=== PATIENT | male | born 1960 | race Caucasian/White ===

== ENCOUNTER 2025-08-07 10:42 | Emergency (ER) | payer MEDICARE, MEDICAID ==
[~2025-08-07] VITALS: Ht 165.1 cm; Wt 63.2 kg
[2025-08-07 12:48] VITALS: BP 132/70; PULSE 83; RESP 15; TEMP 99.4; O2SAT 97
[2025-08-07] MEDS ORDERED: AMLO1CAP77 PO ×2 (13:41→13:51)
[2025-08-07] MEDS ORDERED: ATOR20TA PO ×2 (13:43→13:51)
[2025-08-07] MEDS ORDERED: RIVA10TA PO ×2 (13:45→13:51)
--- NOTE | 2025-08-07 13:53 | Physician Documentation ---
HPI ~ General Chief Complaint: Medication Request Stated Complaint: MED CLEARANCE Time Seen by MD: 12:28 History of Present Illness HPI Comments 65-year-old male who is new to the area in his requesting medication refill for hypertension and his other prescriptions. Denies any medical complaints Without Medications Since: Aug 07, 2025 Medication Reconciliation Allergies: Coded Allergies: No Known Allergies (Unverified , 08/07/25) Scheduled Amlodipine Besylate/Benazepril 2.5/10 MG* (Amlodipine-Benazepril 2.5/10 MG*), 2 CAP PO BID Atorvastatin Calcium* (Lipitor*), 1 TAB PO DAILY Rivaroxaban (Xarelto), 1 TAB PO DAILY Review of Systems All Other Systems at this time: Reviewed and Negative ROS As stated above in the HPI, otherwise all systems are reviewed and negative. Physical Exam Physical Exam Vital Signs: Temperature: 99.4, Source: Temporal, Heart Rate: 83, Respiratory Rate: 15, BP: 132/70, Pulse Oximetry: 97, Weight: 63.200 Oxygen Flow Rate: 0 Physical Exam General: Alert, no apparent distress. HEENT: PERRL, EOMI, no injection, moist mucous membranes. Neck: Full range of motion. Respiratory: Lungs clear, no respiratory distress. Chest: No accessory muscle use. Cardiovascular: Regular rate and rhythm, no murmurs. Gastrointestinal: Soft, nontender, nondistended. Bowels sounds present. Extremities: Normal range of motion, no deformity. Neurologic: Oriented x4. Psychiatric: Normal mood and affect. Skin: Normal color, warm and dry. No edema, no ecchymosis. Progress Results/Orders Results/Orders Vital Signs 08/07/25 08/07/25 10:50 12:48 Temp 99.4 99.4 Pulse 87 83 Resp 18 15 B/P (MAP) 123/68 132/70 (90) Pulse Ox 94 97 O2 Flow Rate 0 0 Medical Decision Making Additional information obtaine: old records Findings Medications refilled as requested Differential Dx:Considerations: Include: Adverse circumstances, Economic, Psychosocial, Medical services unavail., Medication refill, Medication non- compliance, Other Departure Disposition: HOME / SELF CARE / HOMELESS Impression: Primary Impression: General medical exam Discharge Instructions: Medicine Refill at the Emergency Department Referrals: NO PRIMARY CARE PROVIDER (PCP) Prescriptions Rivaroxaban (Xarelto) 10 Mg Tablet 1 TAB PO DAILY for 7 Days, #7 TAB 0 Refills Prov: EDGAR VILLANUEVA NP 08/07/25 Atorvastatin Calcium* (Lipitor*) 20 Mg Tablet 1 TAB PO DAILY for 30 Days, #30 TAB Prov: EDGAR VILLANUEVA NP 08/07/25 Amlodipine Besylate/Benazepril 2.5/10 MG* (Amlodipine-Benazepril 2.5/10 MG*) 2.5 Mg/10 Mg Capsule 2 CAP PO BID for 30 Days, #30 CAP Prov: EDGAR VILLANUEVA NP 08/07/25 Signature Scribe Signature: 6 Attestation: Scribed for Edgar Villanueva Np by Edgar Plummer NP . 08/07/25 18:10 EDGAR VILLANUEVA NP Aug 07, 2025 13:53
== END 2025-08-07 14:08 | disposition home or self-care (01) ==
LOC: ER 10:43
DX: Z00.00 Encounter for general adult medical examination without abnormal findings (principal); Z76.0 Encounter for issue of repeat prescription; I10 Essential (primary) hypertension; Z79.899 Other long term (current) drug therapy
CPT/HCPCS: 99282

== ENCOUNTER 2025-08-10 21:22 | Emergency (ER) | payer MEDICARE, MEDICAID ==
[~2025-08-10] VITALS: Ht 165.1 cm; Wt 65.8 kg
[~2025-08-10 21:22] MED LIST: AMLO1CAP77 PO; ATOR20TA PO; RIVA10TA PO
[2025-08-10 21:33] VITALS: BP 100/79; PULSE 96; RESP 18; TEMP 99.5; O2SAT 97
--- NOTE | 2025-08-10 22:39 | Physician Documentation ---
HPI ~ General Chief Complaint: Medication Request Stated Complaint: MULTIPLE MED REQUEST BLOOD THINNERS, ETC Time Seen by MD: 21:45 History of Present Illness HPI Comments This 65-year-old male who presents requesting refill of several medications that he has not been on for the last six months, attempted to gather a history on medications and reasons he is unable to take medications, patient was rambling and complaining about his living situation. Advised the patient I was going to check his external medication history at which point he became upset that I was not listening to him and decided to leave the emergency department no longer wishing to be seen. Medication Reconciliation Allergies: Coded Allergies: No Known Allergies (Unverified , 08/10/25) Scheduled Amlodipine Besylate/Benazepril 2.5/10 MG* (Amlodipine-Benazepril 2.5/10 MG*), 2 CAP PO BID Atorvastatin Calcium* (Lipitor*), 1 TAB PO DAILY Rivaroxaban (Xarelto), 1 TAB PO DAILY Past Medical History Past Medical History: High Cholesterol, Hypertension Review of Systems ROS As stated above in the HPI, otherwise all systems are reviewed and negative. Physical Exam Physical Exam Vital Signs: Temperature: 99.5, Source: Temporal, Heart Rate: 96, Respiratory Rate: 18, BP: 100/79, Pulse Oximetry: 97, Weight: 65.800 Oxygen Flow Rate: 0 Physical Exam VITALS: Reviewed and as above. GENERAL: Alert, nontoxic appearing, no apparent distress. RESPIRATORY: No increased work of breathing, no respiratory distress, speaking in full clear sentences NEURO: GCS 15 PSYCH: Mildly agitated Progress Results/Orders Results/Orders Vital Signs 08/10/25 21:33 Temp 99.5 Pulse 96 Resp 18 B/P (MAP) 100/79 Pulse Ox 97 O2 Flow Rate 0 Medical Decision Making Additional information obtaine: N/A Findings This 65-year-old male who presents requesting refill of several medications that he has not been on for the last six months, attempted to gather a history on medications and reasons he is unable to take medications, patient was rambling and complaining about his living situation. Advised the patient I was going to check his external medication history at which point he became upset that I was not listening to him and decided to leave the emergency department no longer wishing to be seen. As patient reported no acute symptoms or concerns and was otherwise well-appearing with stable vital signs I have no reasonable suspicion that a acute medical emergency exists. As patient wishes to no longer be seen and can not provide further information on medications to be refilled no medication refills will be made today. Differential Dx:Considerations: Include: Adverse circumstances, Economic, Psychosocial, Medical services unavail., Medication refill, Medication non- compliance Departure Time of Disposition: 22:38 Disposition: 01 HOME / SELF CARE / HOMELESS Impression: Primary Impression: General medical exam Condition: Stable Additional Instructions: Please return to the emergency department if you change your mind on needing medication refills. Please follow up with your primary care provider or [facility] in the next few days. Please return to the emergency department for any new or worsening concerning symptoms. Referrals: NO PRIMARY CARE PROVIDER (PCP) Education Educated: Patient Educated regarding: diagnosis, treatment, prognosis, need for follow up Signature Scribe Signature: No scribe Attestation: The note accurately reflects work and decisions made by me.YAHAIRA Weller 08/11/25 01:58 MANFRED VERA Aug 10, 2025 22:39
== END 2025-08-10 22:52 | disposition home or self-care (01) ==
LOC: ER 21:24
DX: Z00.00 Encounter for general adult medical examination without abnormal findings (principal); I10 Essential (primary) hypertension; E78.00 Pure hypercholesterolemia, unspecified; Z79.899 Other long term (current) drug therapy
CPT/HCPCS: 99282

== ENCOUNTER 2025-08-16 16:34 | Emergency (ER) | payer MEDICARE, MEDICAID ==
[~2025-08-16] VITALS: Ht 165.1 cm; Wt 66.0 kg
[2025-08-16 16:44] VITALS: BP 154/84; PULSE 115; RESP 16; TEMP 98; O2SAT 98
[2025-08-16] MEDS ORDERED: RIVA10TA PO (16:49)
[2025-08-16] MEDS ORDERED: AMLO1CAP77 PO (16:49)
[2025-08-16] MEDS ORDERED: ATOR20TA PO (16:49)
--- NOTE | 2025-08-16 16:50 | Physician Documentation ---
HPI ~ General Chief Complaint: Medication Refill Stated Complaint: MED REQUEST Time Seen by MD: 16:47 OK to notify your PCP?: Yes Source: patient Mode of Arrival: POV Exam Limitations: no limitations History of Present Illness HPI Comments Requesting refill of his amlodipine/benazepril, Lipitor and Xarelto. Has not medical concerns. Reports that he is staying in a rehab program and is running out of his medications. Denies any medical concerns for today Medication Reconciliation Allergies: Coded Allergies: No Known Allergies (Unverified , 08/10/25) Scheduled Amlodipine Besylate/Benazepril 2.5/10 MG* (Amlodipine-Benazepril 2.5/10 MG*), 2 CAP PO BID Atorvastatin Calcium* (Lipitor*), 1 TAB PO DAILY Rivaroxaban (Xarelto), 1 TAB PO DAILY Past Medical History Past Medical History: No Pertinent History, High Cholesterol, Hypertension Review of Systems All Other Systems at this time: Reviewed and Negative Physical Exam Physical Exam Vital Signs: Temperature: 98.0, Source: Temporal, Heart Rate: 115, Respiratory Rate: 16, BP: 154/84, Pulse Oximetry: 98, Weight: 66.000 Oxygen Flow Rate: 0 Progress Results/Orders Results/Orders Vital Signs 08/16/25 16:44 Temp 98.0 Pulse 115 Resp 16 B/P (MAP) 154/84 Pulse Ox 98 O2 Flow Rate 0 Medical Decision Making Additional information obtaine: old records Findings Denies having any medical concerns other than requesting a refill of his prescription medications. Refill was sent to his pharmacy. Differential Dx:Considerations: Include: Adverse circumstances, Economic, Psychosocial, Medical services unavail., Medication refill, Medication non- compliance Departure Disposition: 01 HOME / SELF CARE / HOMELESS Impression: Primary Impression: Encounter for medication refill Condition: Stable Discharge Instructions: Medicine Refill at the Emergency Department Additional Instructions: Return back here for any new or worsening symptoms. Please follow up with your primary care provider within the next month for future refills. Referrals: NO PRIMARY CARE PROVIDER (PCP) Prescriptions Rivaroxaban (Xarelto) 10 Mg Tablet 1 TAB PO DAILY for 30 Days, #30 TAB 0 Refills Prov: MAGDA PERKINS W[employer]CLOTH FOLDER 08/16/25 Atorvastatin Calcium* (Lipitor*) 20 Mg Tablet 1 TAB PO DAILY for 30 Days, #30 TAB Prov: MAGDA PERKINSP 08/16/25 Amlodipine Besylate/Benazepril 2.5/10 MG* (Amlodipine-Benazepril 2.5/10 MG*) 2.5 Mg/10 Mg Capsule 2 CAP PO BID for 30 Days, #30 CAP Prov: MAGDA PERKINSP 08/16/25 Education Educated: Patient Educated regarding: diagnosis, treatment, prognosis, need for follow up Additional Comment Medical Screen Exam This patient recieved a medical screening examination. After reviewing the individual's medical complaints with presenting symptoms and performing an appropriate physical examination, it was determined that no immediate life- threatening emergency medical condition is present. This individual is also not a women having contractions. Signature Scribe Signature: . Attestation: Scribed for Magda Perkins by Magda Plummer NP . 08/16/25 17:29 Parts of this note were created using [employer] voice recognition software program. While efforts were made to correct any mistakes made by this voice recognition software program, nonsensical phrases may remain in this note. In addition, there may be errors and syntax, grammar, content and spelling. MAGDA PERKINSP Aug 16, 2025 16:50
== END 2025-08-16 17:25 | disposition home or self-care (01) ==
LOC: ER 16:34
DX: I10 Essential (primary) hypertension (principal); Z76.0 Encounter for issue of repeat prescription; E78.00 Pure hypercholesterolemia, unspecified; Z79.899 Other long term (current) drug therapy
CPT/HCPCS: 99282